=== PATIENT | male | born 1950 | race African-American/Black ===

== ENCOUNTER 2017-09-30 17:48 | Emergency (ER) | payer OTHER ==
[2017-09-30 18:05] VITALS: BP 135/82; PULSE 80; TEMP 98.9; BMI 35.2
--- NOTE | 2017-09-30 18:05 | PDOC ---
Rapid Medical Evaluation Chief Complaint: Chest Pain Time Seen by Provider: 09/30/17 17:59 Medical Evaluation: Allergies Allergy/AdvReac Type Severity Reaction Status Date / Time sulfur [From Sulfur-8] Allergy Verified 09/30/17 17:55 09/30/17 17:59 The patient presents with a chief complaint of: [Left sided chest pain for several days, sent from urgent care, EKG with possible ischemia.] I have performed a brief in-person evaluation of this patient. Pertinent physical exam findings: VSS [+ cough, no rhonchi or wheezing. RRR I have ordered the following: [EKG, Chest PA/LAT] The patient will proceed to the ED for further evaluation. 09/30/17 18:04 09/30/17 18:07 Discharge Disposition - Diagnosis Chest pain - Referrals - Patient Instructions - Post Discharge Activity
[2017-09-30] MEDS ORDERED: ASPIRIN 81 MG CHEWABLE TABLETS PO ONE (18:49)
[2017-09-30 19:37] LABS: BASO % 0.6 % (0-2.0); EOS % 0.8 % (0-4.5); HEMATOCRIT 39.4 % (35.4-49); HEMOGLOBIN 13.6 GM/dL (11.7-16.9); LYMPH % 8.6 % (8-40); MCH 30.5 pg (25.7-33.7); MCHC 34.4 g/dl (32.0-35.9); MEAN CELL VOLUME 88.6 fl (80-96); PLATELET COUNT 145 K/MM3 (134-434); RBC 4.45 M/mm3 (4.00-5.60); RDW 13.5 % (11.9-15.9); WHITE BLOOD COUNT 6.5 K/mm3 (4.0-10.0)
[2017-09-30 19:48] LABS: ALBUMIN 4.2 g/dl (3.4-5.0); ANION GAP 7 (8-16); BILIRUBIN,TOTAL 0.7 mg/dL (0.2-1.0); BLOOD UREA NITROGEN 11 mg/dL (7-18); CALCIUM 8.7 mg/dL (8.5-10.1); CHLORIDE 107 mmol/L (98-107); CO2 27 mmol/L (21-32); CREATININE 0.9 mg/dL (0.7-1.3); GLUCOSE,RANDOM 92 mg/dL (74-106); MAGNESIUM 1.8 mg/dL (1.8-2.4); POTASSIUM 3.8 mmol/L (3.5-5.1); SGOT/AST 17 U/L (15-37); SGPT/ALT 25 U/L (12-78); SODIUM 141 mmol/L (136-145); TOT PROT 7.5 g/dl (6.4-8.2)
[2017-09-30 19:50] LABS: INR 1.17 (0.82-1.09); PROTHROMBIN TIME (PATIENT) 13.2 SEC (9.98-11.88)
[2017-09-30 19:51] LABS: ALK PHOS 65 U/L (45-117)
--- NOTE | 2017-09-30 20:47 | PDOC ---
History of Present Illness <Candy Correa - Last Filed: 09/30/17 20:57> <Michelle Mendenhall - Last Filed: 09/30/17 21:05> - General Chief Complaint: Chest Pain Stated Complaint: CHEST PAIN Time Seen by Provider: 09/30/17 17:59 - History of Present Illness Initial Comments: 09/30/17 20:58 The patient is a 67 year old male with past medical history of hypertension, hyperlipidemia, NIDDM, s/p bilateral TKR who presents to the ED with complaints of flu like symptoms for the past two and a half days. The patient complains of nasal congestion, cough, body aches, sweats, and occasional nausea. He also adds having pleuritic chest pain upon coughing and deep inspiration. He reports going to Urgent Care where he received a cardiac workup and was told he did not have the flu. The patient denies any fevers. He denies any vomiting or diarrhea. Allergies: Sulfa Social: Denies any drug, alcohol, or tobacco use. PCP: Dann Ramos ([facility]) Past History - Past Medical History COPD: No DVT: No GI Disorders: Yes HTN: Yes - Immunization History Immunization Up to Date: Yes - Suicide/Smoking/Psychosocial Hx Smoking History: Never smoked Have you smoked in the past 12 months: No Information on smoking cessation initiated: No Hx Alcohol Use: No Drug/Substance Use Hx: No Substance Use Type: None <Candy Correa - Last Filed: 09/30/17 20:57> <Michelle Mendenhall - Last Filed: 09/30/17 21:05> - Past Medical History Allergies/Adverse Reactions: Allergies Allergy/AdvReac Type Severity Reaction Status Date / Time sulfur [From Sulfur-8] Allergy Verified 09/30/17 17:55 Home Medications: Ambulatory Orders Atorvastatin Ca [Lipitor] 10 mg PO HS 09/30/17 Esomeprazole Magnesium [Nexium 24Hr] 40 mg PO BID 09/30/17 Lisinopril [Zestril] 2.5 mg PO DAILY 09/30/17 Metoprolol Succinate [Toprol Xl] 25 mg PO DAILY 09/30/17 Oseltamivir Phosphate [Tamiflu -] 75 mg PO BID #10 capsule 09/30/17 Oseltamivir Phosphate [Tamiflu -] 75 mg PO BID #10 capsule 09/30/17 Tadalafil [Cialis] 5 mg PO ASDIR 09/30/17 Valacyclovir HCl [Valtrex -] 1,000 mg PO BID 09/30/17 metFORMIN HCL [Glucophage -] 500 mg PO BID 09/30/17 Review of Systems <Candy Correa - Last Filed: 09/30/17 20:57> - Review of Systems Able to Perform ROS?: Yes All Other Systems: Reviewed and Negative <Michelle Mendenhall - Last Filed: 09/30/17 21:05> - Review of Systems Comments:: 09/30/17 20:58 CONSTITUTIONAL: Present: weakness Absent: fever, chills, diaphoresis, malaise, loss of appetite HEENT: Present: nasal congestion Absent: rhinorrhea, throat pain, throat swelling, difficulty swallowing, mouth swelling, ear pain, eye pain, visual Changes CARDIOVASCULAR: Absent: chest pain, syncope, palpitations, irregular heart rate, lightheadedness , peripheral edema RESPIRATORY: Present: cough Absent: shortness of breath, dyspnea with exertion, orthopnea, wheezing, stridor , hemoptysis GASTROINTESTINAL: Absent: abdominal pain, abdominal distension, nausea, vomiting, diarrhea, constipation, melena, hematochezia GENITOURINARY: Absent: dysuria, frequency, urgency, hesitancy, hematuria, flank pain, genital pain MUSCULOSKELETAL: Present: body aches SKIN: Absent: rash, itching, pallor HEMATOLOGIC/IMMUNOLOGIC: Absent: easy bleeding, easy bruising, lymphadenopathy, frequent infections ENDOCRINE: Absent: unexplained weight gain, unexplained weight loss, heat intolerance, cold intolerance NEUROLOGIC: Absent: headache, focal weakness or paresthesias, dizziness, unsteady gait, seizure, mental status changes, bladder or bowel incontinence PSYCHIATRIC: Absent: anxiety, depression, suicidal or homicidal ideation, hallucinations. (Michelle Mendenhall) *Physical Exam <Candy Correa - Last Filed: 09/30/17 20:57> <Michelle Mendenhall - Last Filed: 09/30/17 21:05> - Vital Signs Last Vital Signs Temp Pulse Resp BP Pulse Ox 98.9 F 80 16 135/82 100 09/30/17 17:56 09/30/17 17:56 09/30/17 17:56 09/30/17 17:56 09/30/17 19:07 - Physical Exam Comments: 09/30/17 21:00 GENERAL: Well developed, well nourished. Awake and alert. No acute distress. HEENT: Normocephalic, atraumatic. PERRLA, EOMI. No conjunctival pallor. Sclera are non- icteric. Moist mucous membranes. Oropharynx is clear. NECK: Supple. Full ROM. No JVD. Carotid pulses 2+ and symmetric, without bruits. No thyromegaly. No lymphadenopathy. CARDIOVASCULAR: Regular rate and rhythm. No murmurs, rubs, or gallops. Distal pulses are 2+ and symmetric. PULMONARY: No evidence of respiratory distress. Lungs clear to auscultation bilaterally. No wheezing, rales or rhonchi. ABDOMINAL: Soft. Non-tender. Non-distended. No rebound or guarding. No organomegaly. Normoactive bowel sounds. MUSCULOSKELETAL Normal range of motion at all joints. No bony deformities or tenderness. No CVA tenderness. EXTREMITIES: No cyanosis. No clubbing. No edema. No calf tenderness. SKIN: Warm and dry. Normal capillary refill. No rashes. No jaundice. NEUROLOGICAL: Alert, awake, appropriate. Cranial nerves 2-12 intact. No deficits to light touch and temperature in face, upper extremities and lower extremities. No motor deficits in the in face, upper extremities and lower extremities. Normoreflexic in the upper and lower extremities. Normal speech. Toes are down-going bilaterally. Gait is normal without ataxia. PSYCHIATRIC: Cooperative. Good eye contact. Appropriate mood and affect. (Michelle Mendenhall) Heart Score/ECG Review <Candy Correa - Last Filed: 09/30/17 20:57> <Michelle Mendenhall - Last Filed: 09/30/17 21:05> - ECG Intrepretation Comment:: 09/30/17 21:04 ECG obtained at 18:09 Normal sinus rhythm at 78 bpm Possible left atrial enlargement Nonspecific T wave abnormality (Michelle Mendenhall) ED Treatment Course - LABORATORY CBC & Chemistry Diagram: 09/30/17 19:00 09/30/17 19:00 <Candy Correa - Last Filed: 09/30/17 20:57> - LABORATORY CBC & Chemistry Diagram: 09/30/17 19:00 09/30/17 19:00 <[email or web address] - Last Filed: 09/30/17 21:05> - ADDITIONAL ORDERS Additional order review: Laboratory Results 09/30/17 09/30/17 19:00 19:00 PT with INR 13.20 H INR 1.17 H Sodium 141 Potassium 3.8 Chloride 107 Carbon Dioxide 27 Anion Gap 7 L BUN 11 Creatinine 0.9 Creat Clearance w eGFR > 60 Random Glucose 92 Calcium 8.7 Magnesium 1.8 Total Bilirubin 0.7 AST 17 ALT 25 Alkaline Phosphatase 65 Creatine Kinase 173 Creatine Kinase Index 0.6 CK-MB (CK-2) 1.131 Troponin I < 0.02 Total Protein 7.5 Albumin 4.2 09/30/17 19:00 RBC 4.45 MCV 88.6 MCHC 34.4 RDW 13.5 MPV 10.0 Neutrophils % 79.0 Lymphocytes % 8.6 Monocytes % 11.0 H Eosinophils % 0.8 Basophils % 0.6 - Medications Given in the ED: ED Medications Discontinued Medications Generic Name Dose Route Start Last Admin Trade Name Jaelyn PRN Reason Stop Dose Admin Aspirin 162 mg 09/30/17 18:49 09/30/17 19:15 Asa - PO 09/30/17 18:50 162 mg ONCE ONE Administration *DC/Admit/Observation/Transfer <Candy Correa - Last Filed: 09/30/17 20:57> <[email or web address] - Last Filed: 09/30/17 21:05> Diagnosis at time of Disposition: Cough, Body aches, Nasal congestion Chest pain Qualifiers: Chest pain type: unspecified Qualified Code(s): R07.9 - Chest pain, unspecified - Discharge Dispostion Disposition: HOME Condition at time of disposition: Stable - Prescriptions Prescriptions: Oseltamivir Phosphate [Tamiflu -] 75 mg PO BID #10 capsule Oseltamivir Phosphate [Tamiflu -] 75 mg PO BID #10 capsule - Referrals Referrals: Dann Ramos MD [Primary Care Provider] - - Patient Instructions Printed Discharge Instructions: DI for Cough -- Adult, DI for Atypical Chest Pain, DI for Nasal Congestion Additional Instructions: -please take tylenol or motrin for body aches and fever -rest -stay hydrated -your tamiflu prescription is at [facility] pharmacy -return for any worsening symptoms - Post Discharge Activity - Attestations Scribe Attestion: 09/30/17 21:00 Documentation prepared by Michelle Mendenhall, acting as medical radiation therapist for Candy Correa MD. (Michelle Mendenhall)
[2017-09-30 22:01] LABS: PLATELET ESTIMATE SLT DECREASE
--- NOTE | 2017-10-01 10:51 | EKG ---
Test Reason : Blood Pressure : / mmHG Vent. Rate : 078 BPM Atrial Rate : 078 BPM P-R Int : 138 ms QRS Dur : 082 ms QT Int : 362 ms P-R-T Axes : 033 002 -17 degrees QTc Int : 412 ms NORMAL SINUS RHYTHM POSSIBLE LEFT ATRIAL ENLARGEMENT NONSPECIFIC T WAVE ABNORMALITY ABNORMAL ECG NO PREVIOUS ECGS AVAILABLE Confirmed by DARIANA QUEZADA MD ([id number]) on 10/01/2017 10:50:57 AM Referred By: Confirmed By:DARIANA QUEZADA MD
== END 2017-09-30 20:57 | disposition home or self-care (01) ==
LOC: JER 17:48
DX: R07.9 Chest pain, unspecified (principal); R05 Cough; R51 Headache; R09.81 Nasal congestion; I10 Essential (primary) hypertension; E78.5 Hyperlipidemia, unspecified
CPT/HCPCS: 36415; 71046-TC-FY; 80053; 82550; 82553; 83735; 84484; 85025; 85610; 93005; 93010; 99284-25

== ENCOUNTER 2018-01-22 16:24 | Observation (INO) | payer OTHER ==
--- NOTE | 2018-01-22 16:40 | PDOC ---
History of Present Illness - General Chief Complaint: Syncope/Near Syncope Stated Complaint: SYNCOPE - History of Present Illness Initial Comments: 01/22/18 17:11 67 year old male with past medical history of hypertension, hyperlipidemia, NIDDM, s/p bilateral TKR, prostate CA s/p resection presented to the hospital for 2 syncopal episodes today. He reports that he experienced nausea/vomiting around 2pm today, after which he sat in the bathroom lightheaded and dizzy. Reports passing out on the toilet and waking up 10 minutes later in the same location, still dizzy, nauseous and having slight palpitations. He later picked up his family member from [place], during which he felt the same symptoms. He reports leaning over to pick something up, and reports a second episode of syncope where he was out for several minutes. Denies hitting his head. He says this has never happened to him before. He states that he has felt general dizziness and lightheadedness for 2 days. He states that he checked his sugar this morning which was 118. Denies chest pain, SOB, abdominal pain, diarrhea, fevers, chills. Reports drinking a lot of coffee today and yesterday. Allergies: Sulfa drugs (throat swells) Smoking: none Alcohol: none Drugs: none PCP: Gerdis Past History - Past Medical History Allergies/Adverse Reactions: Allergies Allergy/AdvReac Type Severity Reaction Status Date / Time sulfur [From Sulfur-8] Allergy Verified 01/22/18 16:49 Home Medications: Ambulatory Orders Atorvastatin Ca [Lipitor] 10 mg PO HS 09/30/17 Esomeprazole Magnesium [Nexium 24Hr] 40 mg PO BID 09/30/17 Lisinopril [Zestril] 2.5 mg PO DAILY 09/30/17 Metoprolol Succinate [Toprol Xl] 25 mg PO DAILY 09/30/17 Valacyclovir HCl [Valtrex -] 1,000 mg PO BID 09/30/17 metFORMIN HCL [Glucophage -] 500 mg PO BID 09/30/17 COPD: No DVT: No GI Disorders: Yes HTN: Yes - Immunization History Immunization Up to Date: Yes - Suicide/Smoking/Psychosocial Hx Smoking History: Never smoked Have you smoked in the past 12 months: No Hx Alcohol Use: No Drug/Substance Use Hx: No Substance Use Type: None Review of Systems - Review of Systems Able to Perform ROS?: Yes Is the patient limited Arabic proficient: Yes Constitutional: Yes: Weakness, Other (dizzy). No: Fever HEENTM: No: Blurred Vision, Throat Pain Respiratory: No: Cough, Shortness of Breath, Wheezing Cardiac (ROS): Yes: Lightheadedness. No: Chest Pain, Irregular Heart Rate, Chest Tightness ABD/GI: No: Abdominal Distended, Diarrhea, Nausea, Vomiting Musculoskeletal: No: Joint Pain Neurological: Yes: Dizziness. No: Ataxia *Physical Exam - Physical Exam Comments: 01/22/18 17:24 GENERAL: A&Ox3, no acute distress EYES: PERRLA, EOMI ENT: Moist mucus membranes NECK: No JVD LUNGS: CTA, no wheezes HEART: bradycardic, no murmurs ABDOMEN: Soft, nontender, BS present MUSCULOSKELETAL: No CVA Tenderness EXTREMITIES: 2+ pulses, no edema. NEUROLOGICAL: Cranial nerves II-XII intact. ED Treatment Course - LABORATORY CBC & Chemistry Diagram: 01/22/18 17:18 01/22/18 17:18 Medical Decision Making - Medical Decision Making 01/22/18 17:21 67 year old male with past medical history of hypertension, hyperlipidemia, NIDDM, s/p bilateral TKR, prostate CA comes in after 2 syncopal episodes and nausea/vomiting #Syncope: most likely vasovagal in origin -orthostatic vital signs -cbc, cmp, mag, tsh, troponin, UA, CXR, BNP -cardiac monitoring -EKG -1 L normal saline -reglan -famotidine -will re-evaluate 01/22/18 18:38 -patient feels much better after 1L NS and reglan/famotidine -will give 1 more liter of NS -will admit for syncopal workup *DC/Admit/Observation/Transfer Diagnosis at time of Disposition: Syncope - Discharge Dispostion Condition at time of disposition: Stable Decision to Admit order: Yes - Referrals Referrals: Dann Ramos MD [Primary Care Provider] - - Patient Instructions - Post Discharge Activity
[2018-01-22] MEDS ORDERED: SODIUM CHLORIDE 1,000 ML IV STA ×2 (16:58→18:37)
[2018-01-22] MEDS ORDERED: METOCLOPRAMIDE HCL INJECTION 10 MG/2 ML VIAL IVPUSH ONE (17:04)
[2018-01-22] MEDS ORDERED: FAMOTIDINE 20 MG/50 ML IVPB 20 MG/50 ML MG IVPB ONE ×2 (17:06→17:15)
[2018-01-22] MEDS ORDERED: METOCLOPRAMIDE HCL INJECTION 10 MG/2 ML VIAL ONE (17:06)
--- NOTE | 2018-01-22 17:11 | PDOC ---
Attending Attestation - HPI HPI: 01/22/18 17:48 The patient is a 67 year old male with a significant PMH of prostate CA (s/p resection). HTN, NIDDM, and hyperlipidemia who presents to the emergency department for evaluation of syncope and vomiting earlier today. The patient states he vomited and had diarrhea in the early afternoon and syncopized on the toilet after feeling dizzy shortly after. He reports waking up on the toilet approximately 10 minutes later with dizziness and nausea. The patient reports a second syncopal episode later in the day while bending over after feeling similar symptoms, and notes waking up a few minutes later. The patient denies hitting his head. He denies chest pain or shortness of breath. He denies fevers or chills. He denies numbness or tingling. The patient notes he has had cold- like symptoms including congestion over the past few weeks. Allergies: Sulfur PCP: Dr. Ramos - Physicial Exam PE: 01/22/18 17:48 Constitutional: Awake, alert, oriented. No acute distress. Head: Normocephalic. Atraumatic Eyes: (+) Right horizontal nystagmus. PERRL. EOMI. Conjunctivae are not pale. ENT: (+) Wax in ear, left more than right. Mucous membranes are moist and intact. Posterior pharynx without exudates or erythema. Uvula midline. Neck: Supple. Full ROM. No lymphadenopathy. Cardiovascular: (+) Bradycardic. Regular rhythm. S1, S2 regular. Distal pulses are 2+ and symmetric. Pulmonary/Chest: No evidence of respiratory distress. Clear to auscultation bilaterally No wheezing, rales or rhonchi. Abdominal: Soft and non-distended. There is no tenderness. No rebound, guarding or rigidity. No organomegaly. No palpable masses. Good bowel sounds. Back: No CVA tenderness. Musculoskeletal: (+) Mild right calf tenderness to palpation. No edema. No cyanosis. No clubbing. Full range of motion in all extremities. No calf tenderness. Radial/pedal pulses are intact and 2+ bilaterally Skin: Skin is warm and dry. No petechiae. No purpura. Neurological: Alert and oriented to person, place, and time. Cranial nerves II -XII are grossly intact. Normal speech. Strength is grossly symmetric. No sensory deficits. Psychiatric: Good eye contact. Normal interaction, affect and behavior. <Claude Luis - Last Filed: 01/22/18 17:48> - Resident Resident Name: Dann Paz - ED Attending Attestation I have performed the following: I have examined & evaluated the patient, The case was reviewed & discussed with the resident, I agree w/resident's findings & plan, Exceptions are as noted - Medical Decision Making 01/22/18 17:10 I, Dr. Ludy Londono, DO, attest that this document has been prepared under my direction and personally reviewed by me in its entirety. I further attest, that it accurately reflects all work, treatment, procedures and medical decision -making performed by me. 01/22/18 17:45 a/p: 67yo male with 2 episodes of syncope today -recent viral uri -still with rhinorrhea and cough -palpitaitons -decreased PO intake -no cp -concern for poss dehydration vs arryhthmia, vertigo, cardiac event -will send labs, ekg, cxr -neuro intact -nystagmus on exam - suspect bppv -will medicate and reassess -orthostatics -will needs obs overnight for cardiac monitoring given palpitations and then syncope x 2 today 01/22/18 20:30 pt feels better labs reviewed trop negative has been sinus goran while in the ED however, will keep in obs for syncope x 2 and tele monitoring for palpitations 01/22/18 21:17 resident discussed case with AMIRA who accepts pt to obs. <Ludy Londono - Last Filed: 01/22/18 21:18> Heart Score/ECG Review - ECG Intrepretation Comment:: 01/22/18 17:47 sinus at 61, nl axis, nl interval, t wave inversions III, avf, no acute st changes <Ludy Londono - Last Filed: 01/22/18 21:18>
[2018-01-22 18:07] LABS: URINE APPEARANCE CLEAR; URINE BILIRUBIN NEGATIVE (<2.0 mg/dL); URINE COLOR STRAW; URINE GLUCOSE (UA) NEGATIVE (NEGATIVE); URINE KETONE 1+ (NEGATIVE); URINE LEUK ESTERASE NEGATIVE (NEGATIVE); URINE NITRITE NEGATIVE (NEGATIVE); URINE PROTEIN NEGATIVE (NEGATIVE); URINE UROBILINOGEN NEGATIVE mg/dL (0.2-1.0)
[2018-01-22 18:08] LABS: BASO % 0.4 % (0-2.0); EOS % 0.2 % (0-4.5); HEMATOCRIT 41.2 % (35.4-49); HEMOGLOBIN 13.9 GM/dL (11.7-16.9); LYMPH % 15.9 % (8-40); MCH 29.7 pg (25.7-33.7); MCHC 33.7 g/dl (32.0-35.9); MEAN CELL VOLUME 88.1 fl (80-96); MEAN PLT VOLUME 10.2 fl (7.5-11.1); MONO % 3.3 % (3.8-10.2); NEUT % 80.2 % (42.8-82.8); PLATELET COUNT 188 K/MM3 (134-434); RBC 4.67 M/mm3 (4.00-5.60); RDW 13.4 % (11.9-15.9); WHITE BLOOD COUNT 8.2 K/mm3 (4.0-10.0)
[2018-01-22 18:34] LABS: ALBUMIN 4.3 g/dl (3.4-5.0); ANION GAP 10 (8-16); BLOOD UREA NITROGEN 11 mg/dL (7-18); CALCIUM 9.3 mg/dL (8.5-10.1); CHLORIDE 107 mmol/L (98-107); CO2 25 mmol/L (21-32); CREATININE 0.9 mg/dL (0.7-1.3); GLUCOSE,RANDOM 100 mg/dL (74-106); POTASSIUM 3.7 mmol/L (3.5-5.1); SGOT/AST 25 U/L (15-37); SGPT/ALT 33 U/L (12-78); SODIUM 142 mmol/L (136-145)
[2018-01-22 18:39] LABS: ALK PHOS 56 U/L (45-117); BILIRUBIN,TOTAL 0.9 mg/dL (0.2-1.0); TOT PROT 7.8 g/dl (6.4-8.2)
[2018-01-22 22:38] LABS: PLATELET ESTIMATE ADEQUATE
[2018-01-22] MEDS ORDERED: PROMETHAZINE HCL 25 MG/1 ML VIAL IVPUSH PRN (23:19)
[2018-01-22] MEDS ORDERED: ACETAMINOPHEN 325 MG TABLET (FP) PO PRN (23:19)
[2018-01-22] MEDS ORDERED: SODIUM CHLORIDE 1,000 ML IV SCH (23:30)
--- NOTE | 2018-01-23 00:05 | HP ---
CHIEF COMPLAINT: syncope PCP: Dr. Ramos HISTORY OF PRESENT ILLNESS: 67M w/ hx of HTN, HLD, NIDDM, prostate cancer s/p resection, GERD, and herpes presenting with syncope. Per patient, he was in his USOH until today at 2pm when he developed lightheadedness, nausea, NBNB emesis x 5, diarrhea x 2 episodes, headache, mild SOB, and palpitations. After taking a cold shower, his lightheadedness increased, so he sat down on the toilet. Pt endorses passing out for about 15 minutes and regained consciousness in the same position on the toilet. He denies falling down, tongue biting, urination, and feeling confused upon awakening. 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 At the school, he was adjusting the car seat, leaned down, and had another episode of syncope lasting a minute. He had similar sxs to his first episode and again did not fall down. At this point, the school nurse was passing by and called EMS for him. Pt denies chest pain, cough, fevers, chills, sick contacts, recent travel, abdominal pain, dysuria, consumption of uncooked meat or fish or spoiled foot. ER course was notable for: (1) meds- NS x 2L, reglan, famotidine (2) labs, imaging, EKG Recent Travel: denies PAST MEDICAL HISTORY: as stated above PAST SURGICAL HISTORY: b/l TKR hernia prostate resection Social History: Smoking: denies Alcohol: social Drugs: cannabis sometimes Pt lives [place]ht and [place]. 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 Family History: mother- DM father- DM Allergies sulfur [From Sulfur-8] Allergy (Verified 01/22/18 16:49) HOME MEDICATIONS: Home Medications Medication Instructions Recorded Atorvastatin Ca [Lipitor] 10 mg PO HS 09/30/17 Esomeprazole Magnesium [Nexium 40 mg PO BID 09/30/17 24Hr] Lisinopril [Zestril] 2.5 mg PO DAILY 09/30/17 Metoprolol Succinate [Toprol Xl] 25 mg PO DAILY 09/30/17 Valacyclovir HCl [Valtrex -] 1,000 mg PO BID 09/30/17 metFORMIN HCL [Glucophage -] 500 mg PO BID 09/30/17 REVIEW OF SYSTEMS CONSTITUTIONAL: Absent: fever, chills, diaphoresis, generalized weakness, malaise, loss of appetite, weight change HEENT: Absent: rhinorrhea, nasal congestion, throat pain, throat swelling, difficulty swallowing, mouth swelling, ear pain, eye pain, visual changes present: rhinorrhea, nasal congestion CARDIOVASCULAR: Absent: chest pain, irregular heart rate, peripheral edema present: lightheadedness, palpitations, syncope RESPIRATORY: Absent: cough, dyspnea with exertion, orthopnea, wheezing, stridor, hemoptysis present: SOB GASTROINTESTINAL: Absent: abdominal pain, abdominal distension, , constipation, melena, hematochezia present: nausea, vomiting, diarrhea GENITOURINARY: Absent: dysuria, frequency, urgency, hesitancy, hematuria, flank pain, genital pain MUSCULOSKELETAL: Absent: myalgia, arthralgia, joint swelling, back pain, neck pain SKIN: Absent: rash, itching, pallor HEMATOLOGIC/IMMUNOLOGIC: Absent: easy bleeding, easy bruising, lymphadenopathy, frequent infections ENDOCRINE: Absent: unexplained weight gain, unexplained weight loss, heat intolerance, cold intolerance NEUROLOGIC: Absent: headache, focal weakness or paresthesias, dizziness, unsteady gait, seizure, mental status changes, bladder or bowel incontinence PSYCHIATRIC: Absent: anxiety, depression, suicidal or homicidal ideation, hallucinations. PHYSICAL EXAMINATION Vital Signs - 24 hr 01/22/18 01/22/18 01/22/18 16:52 18:24 23:17 Temperature 98.2 F 98.2 F Pulse Rate 55 L Pulse Rate [ 55 L Apical] Pulse Rate [ 74 Sitting] Pulse Rate [ 68 Standing] Pulse Rate [ 98 H Supine] Respiratory 16 16 Rate Blood Pressure 132/102 Blood Pressure 145/92 [Right Arm] Blood Pressure 126/91 [Sitting] Blood Pressure 129/103 [Standing] Blood Pressure 133/80 [Supine] O2 Sat by Pulse 100 100 Oximetry (%) GENERAL: middle aged male, awake, alert, and fully oriented, in no acute distress. HEENT: NC, AT LUNGS: Breath sounds equal, clear to auscultation bilaterally. No wheezes, and no crackles. No accessory muscle use. HEART: Regular rate and rhythm, normal S1 and S2 without murmur, rub or gallop. ABDOMEN: Soft, nontender, not distended, normoactive bowel sounds, no guarding, no rebound, no masses. No hepatomegaly or splenomegaly. MUSCULOSKELETAL: No peripheral edema. NEUROLOGICAL: Cranial nerves II-XII intact. Normal speech. Laboratory Results - last 24 hr 01/22/18 01/22/18 01/22/18 17:18 17:18 17:18 WBC 8.2 RBC 4.67 Hgb 13.9 Hct 41.2 MCV 88.1 MCH 29.7 MCHC 33.7 RDW 13.4 Plt Count 188 D MPV 10.2 Absolute Neuts (auto) 6.5 Neutrophils % 80.2 Lymphocytes % 15.9 D Monocytes % 3.3 L Eosinophils % 0.2 Basophils % 0.4 Nucleated RBC % 0 Platelet Estimate Adequate Platelet Comment Sodium 142 Potassium 3.7 Chloride 107 Carbon Dioxide 25 Anion Gap 10 BUN 11 Creatinine 0.9 Creat Clearance w eGFR > 60 Random Glucose 100 Calcium 9.3 Magnesium Total Bilirubin 0.9 AST 25 D ALT 33 D Alkaline Phosphatase 56 Creatine Kinase 257 Creatine Kinase Index 0.8 CK-MB (CK-2) 2.17 Troponin I 0.02 B-Natriuretic Peptide Total Protein 7.8 Albumin 4.3 TSH Urine Color Straw Urine Appearance Clear Urine pH 8.0 Ur Specific [place] 1.009 Urine Protein Negative Urine Glucose (UA) Negative Urine Ketones 1+ H Urine Blood Negative Urine Nitrite Negative Urine Bilirubin Negative Urine Urobilinogen Negative Ur Leukocyte Esterase Negative 01/22/18 01/22/18 01/22/18 17:18 17:18 17:18 WBC RBC Hgb Hct MCV MCH MCHC RDW Plt Count MPV Absolute Neuts (auto) Neutrophils % Lymphocytes % Monocytes % Eosinophils % Basophils % Nucleated RBC % Platelet Estimate Platelet Comment Sodium Potassium Chloride Carbon Dioxide Anion Gap BUN Creatinine Creat Clearance w eGFR Random Glucose Calcium Magnesium 1.9 Total Bilirubin AST ALT Alkaline Phosphatase Creatine Kinase Creatine Kinase Index CK-MB (CK-2) Troponin I B-Natriuretic Peptide 15.90 Total Protein Albumin TSH 0.74 Urine Color Urine Appearance Urine pH Ur Specific [place] Urine Protein Urine Glucose (UA) Urine Ketones Urine Blood Urine Nitrite Urine Bilirubin Urine Urobilinogen Ur Leukocyte Esterase CXR: negative EKG: NSR, TWI in leads III, and aVF ASSESSMENT/PLAN: 67M w/ hx of HTN, HLD, NIDDM, prostate cancer s/p resection, GERD, and herpes presenting with 2 episodes of syncope. #syncope -likely vasovagal in setting of gastroenteritis. r/o cardiac and neurologic causes -f/u CT head, echo, carotid doppler -repeat EKG and trop to r/o ACS -cardiology consulted, Dr. Tate, f/u recs -neurology consulted, Dr. Huertas, f/u recs -NS @ 75cc/hr -phenergan PRN -if CT head negative, consider MRI/MRA brain #HTN -continue home lisinopril and toprol #HLD -continue home lipitor #NIDDM -BGM and ISS ACHS -hold home metformin #GERD -continue home esomeprazole #herpes -continue home valacyclovir #FEN/ppx -NS @ 75 -electrolytes wnl -sodium/diabetic diet -esomeprazole -heparin SQ Case discussed with attending, Dr. Cordero. -Dl Freire MD PGY1 Visit type - Emergency Visit Emergency Visit: Yes ED Registration Date: 01/22/18 Care time: The patient presented to the Emergency Department on the above date and was hospitalized for further evaluation of their emergent condition. - New Patient This patient is new to me today: Yes Date on this admission: 01/23/18 - Critical Care Critical Care patient: No Hospitalist Screening - Colonoscopy Questionnaire Colonoscopy Questionnaire: Colonoscopy Questionnaire - Patient: 50 - 75 years old and never had a screening colonoscopy: Unknown History of colon or rectal polyps, or CA: Unknown History of IBD, Crohn's disease or UC: Unknown History of abdominal radiation therapy as a child: Unknown - Relative: 1 with colon or rectal CA, or polyps at age 60 or younger: Unknown Colon or rectal CA diagnosed at age 45 or younger: Unknown Multiple relatives with colon or rectal CA: Unknown - Outcome: Screening Result: Negative Screen
--- NOTE | 2018-01-23 00:33 | PN ---
Teaching Attending Note Name of Resident: Dl Freire ATTENDING PHYSICIAN STATEMENT I saw and evaluated the patient. I reviewed the resident's note and discussed the case with the resident. I agree with the resident's findings and plan as documented. SUBJECTIVE: Patient is 67 year old man with history of HTN, HLD, NIDDM, prostate cancer s/p resection, GERD, and herpes presenting with syncope. At 2pm today he developed lightheadedness, nausea, vomiting x 5, diarrhea x 2 episodes, headache, mild SOB , and palpitations. After taking a cold shower, his lightheadedness increased, so he sat down on the toilet. He passed out for about 15 minutes and regained consciousness in the same position on the toilet. He denies falling down, tongue biting, urination, and feeling confused upon awakening. 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 He had similar symptoms to his first episode and again did not fall down. At this point, the school nurse was passing by and called EMS for him. He said he had double vision and inability to focus on arrival in the ER. Also had tingling on his right arm down to his 5th finger. He has bilateral knee replacements (football injury), cardiac stress test a long time ago and is being evaluated fro left shoulder surgery. OBJECTIVE: Alert and in no acute distress. Not orthostatic. Vital Signs Period Temp Pulse Resp BP Sys/Lamas Pulse Ox Last 24 Hr 98.2 F-98.2 F 55-98 16-16 126-145/80-103 100-100 HEENT: No facial assymetry. No Jaundice, eye redness or discharge, PERRLA, EOMI. Normocephalic, atraumatic. External ears are normal and hearing is grossly intact. No nasal discharge. Neck: Supple, nontender. No palpable adenopathy or thyromegaly. No JVD Chest: Good effort. Clear to auscultation and percussion. Heart: Regular. No S3, rub or murmur Abdomen: Not distended, soft, nontender and no HSM. No rebound or guarding. Normoactive bowel sounds. Ext: Peripheral pulses intact. Surgical scars on both knees. No leg edema. Skin: Warm and dry. No petechiae, rash or ecchymosis. Neuro: Alert. Oriented x3. CN 2-12 grossly intact. Sensation grossly intact in all four extremities and DTR are symmetric. ASSESSMENT AND PLAN: 1. Syncope - Etiology unclear. His EKG shows t wave inversion in leads III and aVF and his CRX shows no abnormalities. We will admit him to telemetry, get serial EKG and troponin, head CT scan, brain MRI/MRA, carotid doppler, EEG, ECHO and urine toxicology. Consult neurology and cardiology. 2. DVT prophylaxis - Heparin 5000u sq tid. 3. Advance directives - Full code
[2018-01-23 02:18] VITALS: BMI 34.4
[2018-01-23] MEDS: HEPARIN NA (PORCINE) 5,000 UNITS/ML 1ML VIAL SQ SCH ×2 (05:28→13:17)
[2018-01-23 06:51] LABS: ALBUMIN 3.1 g/dl (3.4-5.0); BLOOD UREA NITROGEN 8 mg/dL (7-18); CHLORIDE 112 mmol/L (98-107); POTASSIUM 3.6 mmol/L (3.5-5.1); SODIUM 143 mmol/L (136-145)
[2018-01-23 06:55] LABS: ALK PHOS 45 U/L (45-117); ANION GAP 6 (8-16); BILIRUBIN,TOTAL 0.8 mg/dL (0.2-1.0); CO2 25 mmol/L (21-32); CREATININE 0.7 mg/dL (0.7-1.3); GLUCOSE,RANDOM 102 mg/dL (74-106); SGOT/AST 19 U/L (15-37); SGPT/ALT 26 U/L (12-78)
[2018-01-23 07:04] LABS: BASO % 0.5 % (0-2.0); EOS % 1.8 % (0-4.5); HEMATOCRIT 34.8 % (35.4-49); HEMOGLOBIN 11.9 GM/dL (11.7-16.9); LYMPH % 34.4 % (8-40); MCH 30.1 pg (25.7-33.7); MEAN CELL VOLUME 88.4 fl (80-96); MEAN PLT VOLUME 10.2 fl (7.5-11.1); MONO % 7.4 % (3.8-10.2); NEUT % 55.9 % (42.8-82.8); PLATELET COUNT 151 K/MM3 (134-434); RBC 3.94 M/mm3 (4.00-5.60); RDW 13.4 % (11.9-15.9); WHITE BLOOD COUNT 6.9 K/mm3 (4.0-10.0)
--- NOTE | 2018-01-23 09:11 | EKG ---
Test Reason : Blood Pressure : / mmHG Vent. Rate : 050 BPM Atrial Rate : 050 BPM P-R Int : 136 ms QRS Dur : 086 ms QT Int : 424 ms P-R-T Axes : 023 -03 -14 degrees QTc Int : 386 ms SINUS BRADYCARDIA NONSPECIFIC T WAVE ABNORMALITY ABNORMAL ECG WHEN COMPARED WITH ECG OF 22-JAN-2018 16:40, QT HAS SHORTENED Confirmed by NO GALLO MD ([id number]) on 01/23/2018 9:10:58 AM Referred By: Confirmed By:NO GALLO MD
[2018-01-23 09:12] VITALS: BP 127/88; PULSE 56; TEMP 97.8
--- NOTE | 2018-01-23 09:15 | EKG ---
Test Reason : Blood Pressure : / mmHG Vent. Rate : 061 BPM Atrial Rate : 061 BPM P-R Int : 134 ms QRS Dur : 086 ms QT Int : 442 ms P-R-T Axes : 023 011 007 degrees QTc Int : 444 ms POOR DATA QUALITY, INTERPRETATION MAY BE ADVERSELY AFFECTED NORMAL SINUS RHYTHM NONSPECIFIC ST ABNORMALITY WHEN COMPARED WITH ECG OF 30-SEP-2017 18:09, NO SIGNIFICANT CHANGE WAS FOUND Confirmed by NO GALLO MD ([id number]) on 01/23/2018 9:14:59 AM Referred By: Confirmed By:NO GALLO MD
--- NOTE | 2018-01-23 11:54 | CON.CARD ---
Cardiology Consult (text) - Consultation Consultation Note: cc: syncope hpi: 67 m hx htn, hld, dm here with syncope. Past few days was dizzy when standing then yesterday felt nausea and dizzy and passed out when stood up. Happened twice so came to ER. No cp, sob, palps, pnd, orthopnea, le edema. No hx hrt dz. Does not drink much fluids, only coffee most days. Feeling better now, eager to go home. pmh: per hpi psh: TKR social: no tob fam: no prematuer cad, scd ros: per hpi; no fever cough gib hematuria dysuria wt loss muscle pain meds: Home Medications Medication Instructions Recorded Atorvastatin Ca [Lipitor] 10 mg PO HS 09/30/17 Esomeprazole Magnesium [Nexium 40 mg PO BID 09/30/17 24Hr] Lisinopril [Zestril] 2.5 mg PO DAILY 09/30/17 Metoprolol Succinate [Toprol Xl] 25 mg PO DAILY 09/30/17 Valacyclovir HCl [Valtrex -] 1,000 mg PO BID 09/30/17 metFORMIN HCL [Glucophage -] 500 mg PO BID 09/30/17 pe: Vital Signs Period Temp Pulse Resp BP Sys/Lamas Pulse Ox Last 24 Hr 97.8 F-98.3 F 54-98 16-18 126-159/76-110 100-100 nad no jvd rrr s1s2 no mrg cta bl nl eff aaox3 no le e/c/c abd nt nd pos bs no jaunduce diaphoresis +dp pt no carotid bruits Laboratory Last Values WBC 6.9 K/mm3 (4.0-10.0) 01/23/18 05:30 RBC 3.94 M/mm3 (4.00-5.60) L 01/23/18 05:30 Hgb 11.9 GM/dL (11.7-16.9) 01/23/18 05:30 Hct 34.8 % (35.4-49) L D 01/23/18 05:30 MCV 88.4 fl (80-96) 01/23/18 05:30 MCH 30.1 pg (25.7-33.7) 01/23/18 05:30 MCHC 34.0 g/dl (32.0-35.9) 01/23/18 05:30 RDW 13.4 % (11.9-15.9) 01/23/18 05:30 Plt Count 151 K/MM3 (134-434) 01/23/18 05:30 MPV 10.2 fl (7.5-11.1) 01/23/18 05:30 Absolute Neuts (auto) 3.9 # 01/23/18 05:30 Neutrophils % 55.9 % (42.8-82.8) D 01/23/18 05:30 Lymphocytes % 34.4 % (8-40) D 01/23/18 05:30 Monocytes % 7.4 % (3.8-10.2) D 01/23/18 05:30 Eosinophils % 1.8 % (0-4.5) D 01/23/18 05:30 Basophils % 0.5 % (0-2.0) 01/23/18 05:30 Nucleated RBC % 0 % (0-0) 01/23/18 05:30 Platelet Estimate Adequate 01/22/18 17:18 Platelet Comment 01/22/18 17:18 Sodium 143 mmol/L (136-145) 01/23/18 05:30 Potassium 3.6 mmol/L (3.5-5.1) 01/23/18 05:30 Chloride 112 mmol/L (98-107) H 01/23/18 05:30 Carbon Dioxide 25 mmol/L (21-32) 01/23/18 05:30 Anion Gap 6 (8-16) L 01/23/18 05:30 BUN 8 mg/dL (7-18) 01/23/18 05:30 Creatinine 0.7 mg/dL (0.7-1.3) 01/23/18 05:30 Creat Clearance w eGFR > 60 (>60) 01/23/18 05:30 Random Glucose 102 mg/dL (74-106) 01/23/18 05:30 Calcium 8.0 mg/dL (8.5-10.1) L 01/23/18 05:30 Magnesium 1.9 mg/dL (1.8-2.4) 01/22/18 17:18 Total Bilirubin 0.8 mg/dL (0.2-1.0) 01/23/18 05:30 AST 19 U/L (15-37) D 01/23/18 05:30 ALT 26 U/L (12-78) D 01/23/18 05:30 Alkaline Phosphatase 45 U/L (45-117) D 01/23/18 05:30 Creatine Kinase 257 IU/L (39-308) 01/22/18 17:18 Creatine Kinase Index 0.8 % (0.0-5.0) 01/22/18 17:18 CK-MB (CK-2) 2.17 ng/mL (0.5-3.6) 01/22/18 17:18 Troponin I 0.02 ng/ml (0.00-0.05) 01/22/18 22:42 B-Natriuretic Peptide 15.90 pg/ml (5-125) 01/22/18 17:18 Total Protein 6.0 g/dl (6.4-8.2) L 01/23/18 05:30 Albumin 3.1 g/dl (3.4-5.0) L 01/23/18 05:30 TSH 0.74 uIU/ml (0.358-3.74) 01/22/18 17:18 Urine Color Straw 01/22/18 17:18 Urine Appearance Clear 01/22/18 17:18 Urine pH 8.0 (5.0-8.0) 01/22/18 17:18 Ur Specific [place] 1.009 (1.001-1.035) 01/22/18 17:18 Urine Protein Negative (NEGATIVE) 01/22/18 17:18 Urine Glucose (UA) Negative (NEGATIVE) 01/22/18 17:18 Urine Ketones 1+ (NEGATIVE) H 01/22/18 17:18 Urine Blood Negative (NEGATIVE) 01/22/18 17:18 Urine Nitrite Negative (NEGATIVE) 01/22/18 17:18 Urine Bilirubin Negative (<2.0 mg/dL) 01/22/18 17:18 Urine Urobilinogen Negative mg/dL (0.2-1.0) 01/22/18 17:18 Ur Leukocyte Esterase Negative (NEGATIVE) 01/22/18 17:18 ecg: sr, nl intervals, no ischmeic changes cxr: clear lungs tele: sr carotids: no sig stenosis a/p: 67 m hx htn, hld, dm here with syncope. syncope: -likely orthostatic/vasovagal from poor po hydration -sxs improved after ivfs, feels well now -tele, carotids, ecg benign -ortho vs normal now -no signs of cardiac etiology -echo pending, if benign then ok for dc from cardiac pov with possible outpt monitoring if sxs recur htn: -stable hld: -on statin
--- NOTE | 2018-01-23 14:37 | PN ---
Teaching Attending Note Name of Resident: Alesha Tadeo ATTENDING PHYSICIAN STATEMENT I saw and evaluated the patient. I reviewed the resident's note and discussed the case with the resident. I agree with the resident's findings and plan as documented. SUBJECTIVE: seen around 1 am No fever or chills . NO YAP . Numbness and " weird feeling " in R forearm and little finger. he denies nay N/V now , No YAP. 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 Not under care of neurologist. Continues to drive. what happened yesterday was completely different than his narcolepsy. Episode of syncope, no fall on toilet seat . episode in car with light headedness, tunnel vision , and syncope . fell after trying to get out of car with arm hanging on door. vomiting happened before 1st episode OBJECTIVE: NAD, AAOx3. MMM. No JVD CV: RRR Lungs: CTAB ext: no edema or erythema Lungs : CTAB Abd: soft, NT, ND, NL BS. Neuro : EOMI, round equal [upil s, reactiv eto light . sensation to light touch nl in face . strength 5/5 in upper and lwoer extremities proximally and distally. reflexes unable to get Knee jerks ( knee sx ) , biceps 2+ . tongue and uvula at mid line . Nl CN11 sensation to ligh ttouch NL in al body , except some decreased sensation in medial R forearm and little finger ASSESSMENT AND PLAN: 67 y/o man with h/o narcolepsy, HTN, DM, prostate cancer, GERD, and other medical problems who presented with syncopal episodes 1- syncope: unclear etiology. could be due to orthostatic hypotension as vomited yesterday , but 1st episode happend in sitting position on toilet. ? vaso vagal. bradycardix on BB . ? bradyarrhythmias , or tachy arrhythmias can't be r/o . has Narcolepsy, not on any meds, does not follow with neurologist. . ? cause. stroke is less likely . and probably parasthesia in R fore arm is due to Ulnar nerve compression as his arm was hanging on car door - CUS, echo , EKG reviewed. - neuro consult pending - pt was advised not to drive as he might be a threat to himself and to others. Son was at bed side. - IVF - plan was to cont tele , and neuro eval and possible MRI, but he decided to leave AMA . - called later during the day , pt left even before risks were d/w him as he did not wait for MD to come to room
--- NOTE | 2018-01-23 20:20 | DS ---
Physical Exam: SUBJECTIVE: Patient seen and examined at bedside this AM. Left AMA this afternoon, mid work-up. Before hand, was recommended to abstain from driving d/ t narcolepsy. OBJECTIVE: Vital Signs Period Temp Pulse Resp BP Sys/Lamas Pulse Ox Last 24 Hr 97.8 F-98.3 F 54-64 16-18 127-159/76-110 100-100 PHYSICAL EXAM GENERAL: The patient is awake, alert, and fully oriented, in no acute distress. HEAD: Normal with no signs of trauma. EYES: PERRL, extraocular movements intact, sclera anicteric, conjunctiva clear. ENT: Ears normal, nares patent, oropharynx clear without exudates, moist mucous membranes. NECK: Trachea midline, full range of motion, supple. LUNGS: Breath sounds equal, clear to auscultation bilaterally, no wheezes, no crackles, no accessory muscle use. HEART: Regular rate and rhythm, S1, S2 without murmur, rub or gallop. ABDOMEN: Soft, nontender, nondistended, normoactive bowel sounds, no guarding EXTREMITIES: 2+ pt pulses, warm, well-perfused, no edema. NEUROLOGICAL: Cranial nerves II through XII grossly intact. Normal speech, gait not observed. PSYCH: Normal mood, normal affect. SKIN: Warm, dry, normal turgor LABS Laboratory Results - last 24 hr 01/22/18 01/23/18 22:42 05:30 WBC 6.9 RBC 3.94 L Hgb 11.9 Hct 34.8 L D MCV 88.4 MCH 30.1 MCHC 34.0 RDW 13.4 Plt Count 151 MPV 10.2 Absolute Neuts (auto) 3.9 Neutrophils % 55.9 D Lymphocytes % 34.4 D Monocytes % 7.4 D Eosinophils % 1.8 D Basophils % 0.5 Nucleated RBC % 0 Platelet Estimate Calcium Alkaline Phosphatase Troponin I 0.02 Total Protein 01/23/18 05:30 RDW Platelet Comment Sodium 143 Potassium 3.6 Chloride 112 H Carbon Dioxide 25 Anion Gap 6 L BUN 8 Creatinine 0.7 Creat Clearance w eGFR > 60 Random Glucose 102 Calcium 8.0 L Total Bilirubin 0.8 AST 19 D ALT 26 D Alkaline Phosphatase 45 D Troponin I Total Protein 6.0 L Albumin 3.1 L IMAGING 01/22/18: CXR: no acute disease 01/22/18: Carotid flow doppler US: mild thickening at the common carotid bifurcation bilaterally without evidence of hemodynamically significant stenosis 01/23/18: Head CT non-con: no evidence of acute intracranial hemorrhage, edema, midline shift, mass effect, or skull fracture. no CT evidence of acute territorial infarction. HOSPITAL COURSE: Date of Admission:01/22/18 Date of Discharge: 01/23/18 Admit diagnosis: Syncope r/o seizure 67M w/ hx of HTN, HLD, NIDDM, prostate cancer s/p resection, GERD, herpes, narcolepsy, who presented with multiple syncopal episodes. Per patient, he was in his USOH until day of admission when he developed lightheadedness, nausea, NBNB emesis x 5, diarrhea x 2 episodes, headache, mild SOB, and palpitations. After taking a cold shower, pt's lightheadedness increased, so he sat down on the toilet. Pt subsequently endorsed syncopal episode for fifteen minutes, concluding with regaining consciousness in the same position on the toilet. Pt denied any fall, head trauma, tongue biting, or urinary incontinence. 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 While there, he was adjusting the car seat while in his vehicle, leaned down, and experienced another episode of syncope lasting a minute. At this point, the school nurse was passing by and called EMS for him. After episode, pt experienced confusion and rested RUE on the door of his car. Pt admitted for syncope r/o seizure. While pt was in the hospital, he was managed for his syncopal episode. His orthostatic vital signs were negative. Pt had a carotid flow doppler US which did not show hemodynamically significant stenosis. Pt also underwent Head CT non -con which was negative for bleed. During AM after admission, pt underwent an ECHO , but before the result had returned, pt left AMA. Earlier in day, team stressed to pt that he should not drive d/t narcolepsy. Minutes to complete discharge: 45 Discharge Summary Reason For Visit: SYNCOPE Condition: Stable - Instructions Diet, Activity, Other Instructions: Do NOT drive until cleared by your neurologist due to narcolepsy Pt left hospital before my evaluation. Left AMA as per nurse Referrals: Dann Ramos MD [Primary Care Provider] - Disposition: AGAINST MEDICAL ADVICE - Home Medications Comprehensive Discharge Medication List: Ambulatory Orders Atorvastatin Ca [Lipitor] 10 mg PO HS 09/30/17 Esomeprazole Magnesium [Nexium 24Hr] 40 mg PO BID 09/30/17 Lisinopril [Zestril] 2.5 mg PO DAILY 09/30/17 Metoprolol Succinate [Toprol Xl] 25 mg PO DAILY 09/30/17 Valacyclovir HCl [Valtrex -] 1,000 mg PO BID 09/30/17 metFORMIN HCL [Glucophage -] 500 mg PO BID 09/30/17 This patient is new to me today: No Emergency Visit: No Critical Care patient: No - Discharge Referral [facility]erred to [facility] No
[2018-01-24] MEDS ORDERED: LISINOPRIL 5 MG TABLET (FP) PO SCH (10:00)
== END 2018-01-23 13:37 | disposition left against medical advice (07) ==
LOC: JER 16:24 → JERBED 21:07 → J4W 01-23 01:51
PROVIDERS: ADMIT Internal Medicine; ATTEND Internal Medicine
PROC: 3E033GC Introduction of Other Therapeutic Substance into Peripheral Vein, Percutaneous Approach (ICD-10-PCS; principal; 2018-01-22)
PROC: 3E0337Z Introduction of Electrolytic and Water Balance Substance into Peripheral Vein, Percutaneous Approach (ICD-10-PCS; 2018-01-22)
DX: R55 Syncope and collapse (principal); I10 Essential (primary) hypertension; E78.5 Hyperlipidemia, unspecified; E11.9 Type 2 diabetes mellitus without complications; K21.9 Gastro-esophageal reflux disease without esophagitis; B00.9 Herpesviral infection, unspecified; Z85.46 Personal history of malignant neoplasm of prostate; Z79.84 Long term (current) use of oral hypoglycemic drugs
CPT/HCPCS: 36415; 70450-TC; 71046-TC-FY; 80053; 81003; 82550; 82553; 83735; 83880; 84443; 84484; 85025; 93005; 93010; 93306-TC; 93880-TC; 97116-GP; 97161-GP; 99285-25; G0378; J1644; J7030

== ENCOUNTER 2024-02-02 06:14 | Day surgery (SDC) | payer OTHER ==
[2024-01-26 11:34] VITALS: BMI 35.5
[2024-02-02] MEDS ORDERED: VANCOMYCIN 1,000 MG VIAL (RESTRICTED TO ID ONLY) ONE ×2 (07:16→08:17)
[2024-02-02] MEDS ORDERED: TRANEXAMIC ACID 1000 MG/10 ML VIAL ONE ×2 (07:16→08:17)
[2024-02-02] MEDS ORDERED: HYDROmorphone HCL/PF 1 MG/ML VIAL ONE (07:19)
[2024-02-02] MEDS ORDERED: MIDAZOLAM HCL 2 MG/2 ML SINGLE DOSE VIAL ONE (07:19)
[2024-02-02] MEDS ORDERED: BUPIVACAINE LIPOSOME/PF (EXPAREL) 266 MG/20 ML VIAL ONE (07:19)
[2024-02-02] MEDS ORDERED: BUPIVACAINE HCL/PF 0.5% (5MG/ML) 10 ML VIAL ONE (07:20)
[2024-02-02] MEDS ORDERED: SUCCINYLCHOLINE CHLORIDE 200 MG/10 ML SYRINGE ONE (07:22)
[2024-02-02] MEDS ORDERED: PROPOFOL 40 ML ONE (07:22)
[2024-02-02] MEDS ORDERED: ROCURONIUM BROMIDE 50 MG/5 ML SYRINGE ONE (07:22)
[2024-02-02] MEDS ORDERED: CEFAZOLIN SODIUM 2 GM in DEXTROSE 5%-WATER 100 ML IVPB ONE (07:24)
[2024-02-02] MEDS ORDERED: ceFAZolin SODIUM 1 GM VIAL ONE (08:17)
[2024-02-02] MEDS ORDERED: ONDANSETRON 4 MG/2 ML VIAL ONE ×2 (08:17→10:12)
[2024-02-02] MEDS ORDERED: DEXAMETHASONE SOD PHOSPHATE 4 MG/1 ML VIAL ONE ×2 (08:17→10:12)
[2024-02-02] MEDS ORDERED: ONDANSETRON 4 MG/2 ML VIAL IVPUSH PRN (09:16)
[2024-02-02] MEDS ORDERED: SUGAMMADEX SODIUM 200 MG/2 ML VIAL ONE (10:27)
[2024-02-02] MEDS ORDERED: KETOROLAC TROMETHAMINE 30 MG/1 ML VIAL ONE (11:18)
[2024-02-02] MEDS ORDERED: ACETAMINOPHEN INJECTION 100 ML IVPB ONE (11:18)
[2024-02-02] MEDS: KETOROLAC TROMETHAMINE 30 MG/1 ML VIAL IVPUSH SCH (11:20)
[2024-02-02] MEDS: ACETAMINOPHEN 500 MG TABLET (FP) PO SCH (11:26)
[2024-02-02] MEDS: ACETAMINOPHEN 1000 MG/100 ML BAG IVPB ONE (12:50)
[2024-02-02] MEDS: CEFAZOLIN 2 GM in DEXTROSE 5%-WATER 100 ML IVPB SCH (16:57)
[2024-02-02] MEDS: LACTATED RINGERS SOLUTION 1,000 ML IV SCH (16:58)
[2024-02-02] MEDS: VANCOMYCIN/WATER FOR INJ (PEG) 1,000 MG/200 ML BAG IVPB ONE (19:33)
[2024-02-02] MEDS: ATORVASTATIN CA 10 MG TABLET (FP) PO SCH (21:38)
[2024-02-02] MEDS: GABAPENTIN 300 MG CAPSULE PO SCH (21:53)
[2024-02-03] MEDS: CEFAZOLIN SODIUM 2 GM in DEXTROSE 5%-WATER 100 ML IVPB SCH (01:20)
[2024-02-03 08:21] LABS: HEMATOCRIT 36.4 % (35.4-49); HEMOGLOBIN 11.9 G/dL (11.7-16.9); MCH 30.3 pg (25.7-33.7); MCHC 32.7 g/dl (32.0-35.9); MEAN CELL VOLUME 92.7 fl (80-96); MEAN PLT VOLUME 9.3 fl (7.5-11.1); RBC 3.93 10^6/uL (4.00-5.60); RDW 13.5 % (11.9-15.9); WHITE BLOOD COUNT 13.1 10^3/uL (4.0-10.8)
[2024-02-03] MEDS: valACYclovir HCL 500 MG TABLET (FP) PO SCH (09:07)
[2024-02-03] MEDS: HYDROCHLOROTHIAZIDE 12.5 MG CAPSULE (FP) PO SCH (09:07)
[2024-02-03] MEDS: ASPIRIN 325 MG TABLET PO SCH (09:07)
[2024-02-03] MEDS: PANTOPRAZOLE 40 MG TABLET PO SCH (09:08)
[2024-02-03] MEDS: metoPROLOL SUCCINATE 25 MG TAB.SR.24H (FP) PO SCH (09:08)
[2024-02-03] MEDS: VALSARTAN 80 MG TABLET PO SCH (09:08)
[2024-02-03 09:52] LABS: CALCIUM 9.2 mg/dl (8.5-10.1); CREATININE 0.9 mg/dl (0.6-1.3); POTASSIUM 4.1 mmol/L (3.5-5.1)
[2024-02-03] MEDS ORDERED: PATIENT'S OWN MEDICATION (NON-FORMULARY) (Valsartan/Hydrochlorothiazide [Valsartan-Hctz 80 PO SCH (10:00)
[2024-02-04] MEDS: oxyCODONE HCL 5 MG TABLET PO PRN ×2 (07:58→13:31)
[2024-02-04 08:45] LABS: HEMATOCRIT 38.6 % (35.4-49); HEMOGLOBIN 12.6 G/dL (11.7-16.9); MCHC 32.6 g/dl (32.0-35.9); MEAN CELL VOLUME 91.9 fl (80-96); MEAN PLT VOLUME 9.6 fl (7.5-11.1); PLATELET COUNT 168.5 10^3/uL (134-434); RDW 13.5 % (11.9-15.9); WHITE BLOOD COUNT 9.3 10^3/uL (4.0-10.8)
[2024-02-04 08:59] LABS: CALCIUM 9.2 mg/dl (8.5-10.1); CREATININE 0.7 mg/dl (0.6-1.3); POTASSIUM 3.5 mmol/L (3.5-5.1)
[2024-02-04 10:15] VITALS: BP 128/74; PULSE 88; RESP 18; TEMP 98.5
== END 2024-02-04 14:03 | disposition home or self-care (01) ==
LOC: FASUSAT 06:14 → FM/S 12:17 → FASUSAT 02-04 12:34
PROVIDERS: ADMIT Internal Medicine; ATTEND Internal Medicine
PROC: 0RQH0ZZ Repair Left Acromioclavicular Joint, Open Approach (ICD-10-PCS; 2024-02-02)
PROC: 0LS40ZZ Reposition Left Upper Arm Tendon, Open Approach (ICD-10-PCS; 2024-02-02)
PROC: 3E03329 Introduction of Other Anti-infective into Peripheral Vein, Percutaneous Approach (ICD-10-PCS; principal; 2024-02-04)
DX: M19.012 Primary osteoarthritis, left shoulder (principal); M75.102 Unspecified rotator cuff tear or rupture of left shoulder, not specified as traumatic; M75.22 Bicipital tendinitis, left shoulder; I10 Essential (primary) hypertension; E78.5 Hyperlipidemia, unspecified; K21.9 Gastro-esophageal reflux disease without esophagitis; G47.419 Narcolepsy without cataplexy; Z85.46 Personal history of malignant neoplasm of prostate; Z88.8 Allergy status to other drugs, medicaments and biological substances
CPT/HCPCS: 36415; 73030-TC-LT-FY; 80048; 85027; 88305-TC; 88311-TC; 94760; 96365; 96367; 97010-GP; 97116-GP; 97162-GP; C1713; C1757; C1776; C1889; G0378; J0131

== ENCOUNTER 2024-02-28 09:23 | Inpatient (IN) | payer OTHER ==
[2024-02-28 10:23] LABS: HEMATOCRIT 36.6 % (35.4-49); HEMOGLOBIN 12.1 G/dL (11.7-16.9); MCH 30.6 pg (25.7-33.7); MCHC 33.1 g/dl (32.0-35.9); MEAN CELL VOLUME 92.3 fl (80-96); MEAN PLT VOLUME 9.4 fl (7.5-11.1); PLATELET COUNT 278.3 10^3/uL (134-434); RBC 3.96 10^6/uL (4.00-5.60); RDW 14.4 % (11.9-15.9); WHITE BLOOD COUNT 7.4 10^3/uL (4.0-10.8)
[2024-02-28 10:26] LABS: PLATELET ESTIMATE ADEQUATE
[2024-02-28 10:27] LABS: INR 1.06 (0.83-1.09); PROTHROMBIN TIME (PATIENT) 12.1 SEC (9.7-13.0)
[2024-02-28 10:29] LABS: ACTIVATED PTT 29.7 SECONDS (25.2-36.5)
[2024-02-28 10:29] LABS: ALBUMIN 4.1 g/dl (3.4-5.0); BILIRUBIN,TOTAL 0.5 mg/dl (0.2-1); CALCIUM 9.4 mg/dl (8.5-10.1); CREATININE 0.9 mg/dl (0.6-1.3); POTASSIUM 4.3 mmol/L (3.5-5.1); TOT PROT 6.3 g/dl (6.4-8.2)
[2024-02-28] MEDS ORDERED: HYDROmorphone HCL/PF 1 MG/ML VIAL ONE (10:48)
[2024-02-28] MEDS: HYDROmorphone HCl 2 MG/ML VIAL IVPUSH ONE (10:52)
[2024-02-28] MEDS ORDERED: PROPOFOL 20 ML ONE (11:20)
[2024-02-28] MEDS: PROPOFOL 200 MG/20 ML VIAL IVPUSH ONE (11:28)
[2024-02-28 14:22] VITALS: BMI 35.9
[2024-02-28] MEDS: ATORVASTATIN CA 10 MG TABLET (FP) PO SCH (22:36)
[2024-02-28] MEDS: ACETAMINOPHEN 1000 MG/100 ML BAG IVPB PRN (22:37)
[2024-02-29] MEDS: valACYclovir HCL 500 MG TABLET (FP) PO SCH (11:13)
[2024-02-29] MEDS: PANTOPRAZOLE 40 MG TABLET PO SCH (11:13)
[2024-02-29] MEDS: GABAPENTIN 300 MG CAPSULE PO SCH (11:13)
[2024-02-29] MEDS: metoPROLOL SUCCINATE 25 MG TAB.SR.24H (FP) PO SCH (11:13)
[2024-02-29] MEDS ORDERED: oxyCODONE HCL 5 MG TABLET PO PRN (21:22)
[2024-02-29] MEDS ORDERED: morphine CARPU-JECT 4 MG/1 ML DISP.SYRIN IVPUSH PRN (21:22)
[2024-03-01 08:55] LABS: ALBUMIN 3.9 g/dl (3.4-5.0); BILIRUBIN,TOTAL 0.7 mg/dl (0.2-1); CALCIUM 9.7 mg/dl (8.5-10.1); CREATININE 0.7 mg/dl (0.6-1.3); POTASSIUM 4.1 mmol/L (3.5-5.1); TOT PROT 6.1 g/dl (6.4-8.2)
[2024-03-01 10:16] LABS: BASO % 0.6 % (0-2.0); EOS % 6.7 % (0-4.5); HEMATOCRIT 36.4 % (35.4-49); HEMOGLOBIN 12.3 GM/dL (11.7-16.9); LYMPH % 25.9 % (8-40); MCH 30.5 pg (25.7-33.7); MCHC 33.8 g/dl (32.0-35.9); MEAN CELL VOLUME 90.3 fl (80-96); MEAN PLT VOLUME 9.6 fl (7.5-11.1); MONO % 7.5 % (3.8-10.2); NEUT % 59.3 % (42.8-82.8); PLATELET COUNT 268 10^3/uL (134-434); RBC 4.03 M/mm3 (4.00-5.60); RDW 13.8 % (11.9-15.9); WHITE BLOOD COUNT 6.8 K/mm3 (4.0-10.0)
[2024-03-01] MEDS ORDERED: PROPOFOL 20 ML ONE ×2 (13:59→17:12)
[2024-03-01] MEDS ORDERED: ROCURONIUM BROMIDE 50 MG/5 ML SYRINGE ONE (13:59)
[2024-03-01] MEDS ORDERED: SUCCINYLCHOLINE CHLORIDE 200 MG/10 ML SYRINGE ONE (14:05)
[2024-03-01] MEDS ORDERED: ROPIVACAINE HCL/PF 100 MG/20 ML VIAL ONE ×2 (14:11→14:13)
[2024-03-01] MEDS ORDERED: MIDAZOLAM HCL 2 MG/2 ML SINGLE DOSE VIAL ONE (14:20)
[2024-03-01] MEDS ORDERED: TRANEXAMIC ACID 1000 MG/10 ML VIAL ONE (14:21)
[2024-03-01] MEDS ORDERED: VANCOMYCIN 1,000 MG VIAL (RESTRICTED TO ID ONLY) ONE (14:21)
[2024-03-01] MEDS ORDERED: EPINEPHrine/PF 1 MG/1 ML (1:1,000) AMPULE ONE (14:21)
[2024-03-01] MEDS ORDERED: MAG HYDROX/AL HYDROX/SIMETH 30 ML UNIT-DOSE CUP PO PRN (16:48)
[2024-03-01] MEDS: VANCOMYCIN 1,000 MG VIAL (RESTRICTED TO ID ONLY) IVPB ONE (16:50)
[2024-03-01] MEDS ORDERED: hydrALAZINE HCL 20 MG/ML VIAL ONE (17:15)
[2024-03-01] MEDS ORDERED: oxyCODONE HCL 5 MG TABLET PO PRN (18:13)
[2024-03-01] MEDS ORDERED: ONDANSETRON 4 MG/2 ML VIAL IVPUSH PRN (18:13)
[2024-03-01] MEDS ORDERED: PROMETHAZINE HCL 25 MG/1 ML VIAL IVPB PRN (18:13)
[2024-03-01] MEDS ORDERED: KETOROLAC TROMETHAMINE 30 MG/1 ML VIAL IVPUSH PRN (18:15)
[2024-03-01] MEDS ORDERED: ACETAMINOPHEN INJECTION 100 ML IVPB ONE (18:24)
[2024-03-01] MEDS: ACETAMINOPHEN 1000 MG/100 ML BAG IVPB PRN (18:45)
[2024-03-01 18:55] LABS: HEMATOCRIT 34.6 % (35.4-49); HEMOGLOBIN 11.4 G/dL (11.7-16.9); MCH 30.5 pg (25.7-33.7); MCHC 33.1 g/dl (32.0-35.9); MEAN CELL VOLUME 92.3 fl (80-96); MEAN PLT VOLUME 9.6 fl (7.5-11.1); PLATELET COUNT 259.4 10^3/uL (134-434); RBC 3.75 10^6/uL (4.00-5.60); RDW 14.1 % (11.9-15.9); WHITE BLOOD COUNT 12.4 10^3/uL (4.0-10.8)
[2024-03-01] MEDS ORDERED: KETOROLAC TROMETHAMINE 30 MG/1 ML VIAL ONE (18:56)
[2024-03-01] MEDS: morphine CARPU-JECT 4 MG/1 ML DISP.SYRIN IVPUSH ONE (18:58)
[2024-03-01] MEDS ORDERED: ONDANSETRON 4 MG/2 ML VIAL ONE (19:02)
[2024-03-01] MEDS: ONDANSETRON 4 MG/2 ML VIAL IVPUSH PRN (19:03)
[2024-03-01 19:20] VITALS: RESP 19
[2024-03-01] MEDS: LACTATED RINGERS SOLUTION 1,000 ML IV SCH ×2 (22:52→23:02)
[2024-03-01] MEDS: MUPIROCIN 2% TOPICAL OINTMENT FOR DECOLONIZATION NS SCH (23:09)
[2024-03-01] MEDS: CHLORHEXIDINE GLUCONATE 4% CLEANSER FOR DECOLONIZATION TP SCH (23:09)
[2024-03-01] MEDS: CEFAZOLIN SODIUM 2 GM in DEXTROSE 5%-WATER 100 ML IVPB SCH (23:21)
[2024-03-01] MEDS: SENNOSIDES/DOCUSATE COMBO (SENNA PLUS) TABLET (UD) PO SCH (23:22)
[2024-03-02 01:57] LABS: MAGNESIUM 1.5 mg/dL (1.8-2.4)
[2024-03-02 02:01] LABS: PHOSPHOROUS 3.4 mg/dL (2.5-4.9)
[2024-03-02 02:27] VITALS: PULSE 73; TEMP 98
[2024-03-02] MEDS: oxyCODONE HCL 5 MG TABLET PO PRN (02:54)
[2024-03-02] MEDS: VANCOMYCIN/WATER FOR INJ (PEG) 1,000 MG/200 ML BAG IVPB ONE (02:54)
[2024-03-02 03:09] VITALS: BP 130/82
[2024-03-02 03:30] LABS: BLOOD UREA NITROGEN 7.2 mg/dL (7-18); CREATININE 0.8 mg/dL (0.55-1.3); POTASSIUM 4.6 mmol/L (3.5-5.1)
[2024-03-02] MEDS ORDERED: HALOPERIDOL LACTATE 5 MG/ML ONE ×2 (04:34→04:40)
[2024-03-02] MEDS: HALOPERIDOL LACTATE 5 MG/ML IM ONE (06:57)
[2024-03-02] MEDS ORDERED: PANTOPRAZOLE 40 MG TABLET PO SCH (10:00)
[2024-03-02] MEDS ORDERED: ASPIRIN COATED 81 MG TABLET.EC PO SCH (10:00)
[2024-03-02] MEDS ORDERED: MULTIVITAMINS (DAILY MVI) TABLET (FP) PO SCH (10:00)
== END 2024-03-02 07:34 | disposition left against medical advice (07) | DRG 483 ==
LOC: SUPCPDRO 09:23 → FER 09:23 → FM/S 11:51 → JICU 03-01 20:23
PROC: 0RPK0J7 Removal of Synthetic Substitute from Left Shoulder Joint, Glenoid Surface, Open Approach (ICD-10-PCS; 2024-03-01)
PROC: 0RRK0J7 Replacement of Left Shoulder Joint with Synthetic Substitute, Glenoid Surface, Open Approach (ICD-10-PCS; principal; 2024-03-01 14:30)
DX: T84.89XA Other specified complication of internal orthopedic prosthetic devices, implants and grafts, initial encounter (principal); T84.028A Dislocation of other internal joint prosthesis, initial encounter; Y83.9 Surgical procedure, unspecified as the cause of abnormal reaction of the patient, or of later complication, without mention of misadventure at the time of the procedure; I10 Essential (primary) hypertension; E78.5 Hyperlipidemia, unspecified; F03.90 Unspecified dementia, unspecified severity, without behavioral disturbance, psychotic disturbance, mood disturbance, and anxiety; K21.9 Gastro-esophageal reflux disease without esophagitis; E11.9 Type 2 diabetes mellitus without complications
CPT/HCPCS: 36415; 71045-TC-FY; 73030-TC-LT-FY; 73200-TC-RT; 80048; 80053; 81003; 82550; 82553; 82962; 83690; 83735; 84100; 84484; 85025; 85027; 85610; 85651; 85730; 86140; 86850; 86900; 86901; 87070; 87075; 87205; 93005; 93010; 94760; 99285-25; C1713; C1776; J0131

== ENCOUNTER 2024-03-02 08:09 | Observation (INO) | payer OTHER ==
[2024-03-02] MEDS ORDERED: oxyCODONE HCL 5 MG TABLET PO PRN (08:38)
[2024-03-02] MEDS ORDERED: DOCUSATE SODIUM 100 MG CAPSULE (FP) PO PRN (08:38)
[2024-03-02] MEDS ORDERED: CEFAZOLIN SODIUM 2 GM VIAL ONE (09:00)
[2024-03-02 09:18] LABS: HEMATOCRIT 36.8 % (35.4-49); HEMOGLOBIN 12.2 G/dL (11.7-16.9); MCH 30.4 pg (25.7-33.7); MCHC 33.2 g/dl (32.0-35.9); MEAN CELL VOLUME 91.8 fl (80-96); MEAN PLT VOLUME 9.4 fl (7.5-11.1); PLATELET COUNT 255.1 10^3/uL (134-434); RBC 4.01 10^6/uL (4.00-5.60); RDW 14.1 % (11.9-15.9); WHITE BLOOD COUNT 13.5 10^3/uL (4.0-10.8)
[2024-03-02] MEDS: CEFAZOLIN SODIUM 2 GM in DEXTROSE 5%-WATER 100 ML IVPB SCH (09:22)
[2024-03-02] MEDS: PANTOPRAZOLE 40 MG TABLET PO SCH (09:24)
[2024-03-02] MEDS: ASPIRIN 81 MG CHEWABLE TABLETS PO SCH (09:24)
[2024-03-02] MEDS: GABAPENTIN 300 MG CAPSULE PO SCH (09:24)
[2024-03-02] MEDS: HYDROCHLOROTHIAZIDE 12.5 MG CAPSULE (FP) PO SCH (09:24)
[2024-03-02] MEDS: CHOLECALCIFEROL (VIT D3) 1,000 UNIT (25 MCG) TABLET PO SCH (09:24)
[2024-03-02] MEDS: metoPROLOL SUCCINATE 25 MG TAB.SR.24H (FP) PO SCH (09:24)
[2024-03-02] MEDS: valACYclovir HCL 500 MG TABLET (FP) PO SCH (09:24)
[2024-03-02 09:27] LABS: BILIRUBIN,TOTAL 0.8 mg/dl (0.2-1); CALCIUM 9.7 mg/dl (8.5-10.1); CREATININE 0.8 mg/dl (0.6-1.3); POTASSIUM 3.7 mmol/L (3.5-5.1); TOT PROT 6.2 g/dl (6.4-8.2)
[2024-03-02] MEDS: VALSARTAN 80 MG TABLET PO SCH (09:27)
[2024-03-02] MEDS: CEFAZOLIN 2 GM in DEXTROSE 5%-WATER - 50 ML IVPB ONE (09:28)
[2024-03-02] MEDS ORDERED: ASPIRIN 325 MG TABLET PO SCH (10:00)
[2024-03-02] MEDS: traMADol HCL 50 MG TABLET PO PRN ×2 (11:23→15:14)
[2024-03-02 15:31] VITALS: BMI 36.1
[2024-03-02 18:20] LABS: HIV INTERPRETATION NEGATIVE (NEGATIVE)
[2024-03-02] MEDS: ATORVASTATIN CA 10 MG TABLET (FP) PO SCH (22:38)
[2024-03-02] MEDS: ACETAMINOPHEN 325 MG TABLET (FP) PO PRN (22:38)
[2024-03-03 04:15] VITALS: RESP 18
[2024-03-03 07:55] LABS: HEMATOCRIT 34.9 % (35.4-49); HEMOGLOBIN 11.2 G/dL (11.7-16.9); MCH 29.7 pg (25.7-33.7); MCHC 32.1 g/dl (32.0-35.9); MEAN CELL VOLUME 92.2 fl (80-96); MEAN PLT VOLUME 9.6 fl (7.5-11.1); PLATELET COUNT 262.9 10^3/uL (134-434); RBC 3.78 10^6/uL (4.00-5.60); RDW 14.7 % (11.9-15.9); WHITE BLOOD COUNT 8.8 10^3/uL (4.0-10.8)
[2024-03-03 08:20] LABS: CALCIUM 9.4 mg/dl (8.5-10.1); CREATININE 0.7 mg/dl (0.6-1.3); POTASSIUM 3.6 mmol/L (3.5-5.1)
[2024-03-04 06:08] VITALS: TEMP 98.1
[2024-03-04 10:25] VITALS: BP 118/81; PULSE 77
== END 2024-03-04 13:56 | disposition home or self-care (01) ==
LOC: FER 08:09 → FM/S 08:34 → UNDOADMOB 09:30 → FM/S 09:30
PROVIDERS: ADMIT Internal Medicine; ATTEND Internal Medicine
PROC: 2W3BXYZ Immobilization of Left Upper Arm using Other Device (ICD-10-PCS; principal; 2024-03-02)
DX: M25.512 Pain in left shoulder (principal); I10 Essential (primary) hypertension; E78.5 Hyperlipidemia, unspecified; K21.9 Gastro-esophageal reflux disease without esophagitis; Z98.890 Other specified postprocedural states; Z96.653 Presence of artificial knee joint, bilateral; G47.419 Narcolepsy without cataplexy; G89.29 Other chronic pain; Z96.619 Presence of unspecified artificial shoulder joint; Z85.46 Personal history of malignant neoplasm of prostate; Z87.738 Personal history of other specified (corrected) congenital malformations of digestive system; Z88.8 Allergy status to other drugs, medicaments and biological substances
CPT/HCPCS: 36415; 73030-TC-LT-FY; 80048; 80053; 85027; 86803; 87389; 93005; 93010; 97116-GP; 97162-GP; 99285-25; G0378